=== PATIENT | male | born 1985 | race Two or more races ===

== ENCOUNTER 2022-03-26 15:02 | Emergency (ER) | payer OTHER ==
[~2022-03-26] VITALS: Ht 165.1 cm; Wt 79.6 kg
[2022-03-26] MEDS ORDERED: IBUPROFEN600 MG PO (15:25)
[2022-03-26] MEDS ORDERED: BACTRIM DS TAB1 EACH PO (15:25)
== END 2022-03-26 15:30 | disposition home or self-care (01) ==
LOC: FSED 15:15
DX: K61.1 Rectal abscess (principal); L73.9 Follicular disorder, unspecified; K64.9 Unspecified hemorrhoids
CPT/HCPCS: 99282